=== PATIENT | male | born 1950 ===

== ENCOUNTER 2016-11-03 05:27 | Inpatient (IN) | payer OTHER ==
[2016-11-03] MEDS ORDERED: LIDOCAINE 1% 2 ML INJ ONE (06:28)
[2016-11-03] MEDS ORDERED: BUPIVACAINE 0.5% 30 ML SDV ONE (06:43)
[2016-11-03] MEDS ORDERED: SKIN ADHESIVE (DERMABOND) 1 EACH TP ONE (06:43)
[2016-11-03] MEDS ORDERED: LIDOCAINE 1% 5 ML SDV ID PRN (06:49)
[2016-11-03] MEDS ORDERED: LR 1,000 ML IV ONE (06:49)
[2016-11-03] MEDS ORDERED: ceFAZolin 2 GM/DEXTROSE 100 ML IV ONE (07:00)
[2016-11-03] MEDS ORDERED: MIDAZOLAM 2 MG/2 ML VIAL ONE (07:11)
[2016-11-03] MEDS ORDERED: PROPOFOL/EMULSION 500 MG/50 ML BOTTLE IV ONE (07:12)
[2016-11-03] MEDS ORDERED: ROCURONIUM 100 MG/10 ML VIAL ONE (07:13)
[2016-11-03] MEDS ORDERED: ONDANSETRON 4 MG/2 ML VIAL ONE (07:13)
[2016-11-03] MEDS ORDERED: LIDOCAINE 2% 5 ML SDV ONE (07:13)
[2016-11-03] MEDS ORDERED: DEXAMETHASONE 4 MG/ML VIAL ONE (07:13)
[2016-11-03] MEDS ORDERED: fentaNYL 250 MCG/5 ML INJ ONE ×2 (07:13→08:36)
[2016-11-03] MEDS ORDERED: KETOROLAC 30 MG/1 ML SDV ONE (07:13)
[2016-11-03] MEDS ORDERED: METOPROLOL TARTRATE 5 MG/5 ML INJ ONE (07:50)
[2016-11-03] MEDS ORDERED: ROCURONIUM 50 MG/5 ML VIAL ONE ×2 (08:57)
[2016-11-03] MEDS ORDERED: THROMBIN(HUM PLAS)/FIBRINOG/CA 5 ML VIAL TP ONE (09:36)
[2016-11-03] MEDS ORDERED: SUGAMMADEX SODIUM 200 MG/2 ML VIAL IVP ONE (10:06)
[2016-11-03] MEDS ORDERED: ONDANSETRON DISINTEGRATING 4 MG TAB PO PRN (10:31)
[2016-11-03] MEDS ORDERED: OXYCODONE/APAP 5/325 TAB PO PRN (10:31)
[2016-11-03] MEDS ORDERED: HYDROmorphONE/DILAUDID 1 MG/ML SYR IVP PRN (10:31)
[2016-11-03] MEDS ORDERED: ONDANSETRON 4 MG/2 ML VIAL IVP PRN (10:31)
[2016-11-03] MEDS ORDERED: ZOLPIDEM TARTRATE 5 MG TAB PO PRN (10:31)
[2016-11-03] MEDS ORDERED: fentaNYL 100 MCG/2 ML INJ ONE (10:44)
--- NOTE | 2016-11-03 11:14 | GOP ---
[f rep st] OPERATIVE REPORT DATE OF OPERATION: SURGEON: Adan Chong MD LICENSE INSPECTOR: Radha Sage CFA. ANESTHESIA: Dr. Shelton, general anesthesia. PREOPERATIVE DIAGNOSIS: Adenocarcinoma of the prostate. POSTOPERATIVE DIAGNOSIS: Adenocarcinoma of the prostate. PROCEDURE PERFORMED: Robotic-assisted radical retropubic prostatectomy and bilateral pelvic lymphad enectomy. FINDINGS: ESTIMATED BLOOD LOSS: Less than 100 mL per anesthesia. DESCRIPTION OF PROCEDURE: After undergoing appropriate general anesthesia, being prepped and draped in normal sterile fashion, and being positioned on the table for all padded sites and positioning, a Veress needle was placed in the supraumbilical site, then inflated the abdomen to 15 mmHg pressure , and then the camera port was placed in that site. Visualization revealed some mild adhesions to t he sigmoid colon and the lateral pelvic sidewall. The remaining ports were placed under direct visi on, and then at that point the robot was docked. I used the [place] bipolar scissors, monopolar, a nd a ProGrasp, and then after mobilization of the colon and adhesions, I was able to identify the va s deferens on the left side and carried that down to where it entered into the prostate. Identified the vas deferens on the right side from there and carried it lateral. Developed the space between the seminal vesicles, posterior prostate, and the anterior rectal wall under direct vision. Hemosta sis was noted. Transected the vasa and dissected out the seminal vesicles and hemostasis with Hem-o -loks. Did develop the plane between the posterior bladder, bladder neck, and the base of the prost ate seminal vesicles, then at that point dropped the bladder down in the normal fashion, going acros s the umbilical arteries and the urachus, and the endopelvic fascia was incised on both t he right and left sides. Puboprostatics taken down sharply. An M stitch was used with an 0 Vicryl to ligate the deep dorsal vein. His prostate was protruding up in the bladder and he had a signific ant amount of periprostatic veins, so I elected to use the tissue sealer device after opening the an terior bladder neck, identifying the posterior bladder neck, and bringing the base of the prostate u p so I could identify the seminal vesicle and vas deferens in the retro-cystic space. They were bro ught up and then I swept the vasculature off the large prostate and then managed them with this tiss ue sealer, and attempting to preserve and sweep away any vascular pedicle that might be on the left side. On the right side, because of the involvement of the base of the prostate, went well up above it so I could identify fat, and there was no obvious abnormality noted, and then went quite lateral so I could take all the periprostatic tissue, and then identified the apex of the prostate. Went t hrough the deep dorsal vein complex. It did seem to be oozing a bit, so I placed another 0 Vicryl s uture to close that, and then transected the urethra, delivered the specimen laterally. Then a Rocc o stitch of a V-Loc stitch was used in the standard fashion and then the anastomosis performed with a 4-0 Vicryl, bridged with a 22-Rosa catheter with a 20 cc balloon inflated, and it irrigated clear . Catheter went in quite easily. At that point, used Evicel at the bladder neck area, and then did the pelvic lymphadenectomy, both the right and left sides, and anatomic area was the mid aspect of the external iliac vein up to its bifurcation. Did actually visualize the ureter on both the right and left sides and made sure to sweep those separate from the olivia packet. There was no significan t olivia packet on the right side and no obvious nodes in that space, but did see a small amount of t issue on the left side, a bit of a larger packet. No gross lymphadenopathy was noted. At that poin t, pressure went down to 5. There were no bleeding sites. Placed a Ernst-Farr drain through the small 8 port system and prior to deflating the abdomen used a fascial closure device to close the 1 2 mm port for the bar assistant port, and then opened the midline abdominal incision lateral so I could deliver the specimen out of that, and then closed the fascia with a running 0 Vicryl. The wound and operative sites were hemostatic and the 4-0 Monocryl was used to close the skin edges. I did injec t the port sites circumferentially with Marcaine. He will be admitted for postoperative care. Disc ussed with his the above findings. Grossly, it appears that the nodes will be normal if there are any noted on the right side. A small amount of tissue was there, and then grossly there appeare d to be no tumor going beyond the prostate or seminal vesicles. We did visualize his pathology and TRUS reports prior to the surgery, so identified the appropriate sides that were involved at the bas e. DRAINS: Rosa catheter and a AYDIN drain. /[id number]/MODL
[2016-11-03] MEDS: D5W 1/2 NS W/ 20 KCl/L 1,000 ML IV SCH ×2 (13:27→21:12)
[2016-11-03] MEDS: ACETAMINOPHEN 325 MG TAB PO PRN (21:12)
[2016-11-03] MEDS: CHOLECALCIFEROL VIT D3 2,000 UNITS TAB/CAP PO SCH (21:12)
[2016-11-04 00:19] VITALS: RESP 16
[2016-11-04] MEDS: ACETAMINOPHEN 325 MG TAB PO PRN ×2 (04:58→12:52)
[2016-11-04] MEDS: D5W 1/2 NS W/ 20 KCl/L 1,000 ML IV SCH (05:02)
[2016-11-04 05:25] LABS: % IMMATURE GRANULYOCYTES 0.4 % (0.0-1.1); ABSOLUTE IMMATURE GRANULOCYTES 0.05 10^3/uL (0.00-0.10); ADD DIFF? NO; ADD MORPH? NO; ADD SCAN? NO; ATYPICAL LYMPHOCYTE FLAG 0 (0-99); FRAGMENT RBC FLAG 0 (0-99); HEMATOCRIT 39.8 % (40.0-51.0); HEMOGLOBIN 13.6 g/dL (13.7-17.5); LEFT SHIFT FLG 0 (0-99); LIPEMIA HEMOLYSIS FLAG 90 (0-99); MEAN CELL HEMOGLOBIN 30.8 pg (27.9-34.1); MEAN CELL HEMOGLOBIN CONCENTR. 34.2 g/dL (32.4-36.7); MEAN PLATELET VOLUME 9.9 fL (8.7-11.7); PLATELET CLUMPS FLAG 10 (0-99); PLATELET COUNT 162 10^3/uL (150-400); RED BLOOD CELL COUNT 4.42 10^6/uL (4.40-6.38); RED CELL DISTRIBUTION WIDTH 13.2 % (11.5-15.2)
[2016-11-04 05:31] LABS: CALCIUM 8.6 mg/dL (8.5-10.4); CARBON DIOXIDE 26 mEq/l (22-31); CHLORIDE 110 mEq/L (97-110); CREATININE 0.9 mg/dL (0.7-1.3); GLOMERULAR FILTRATION RATE > 60; GLUCOSE 129 mg/dL (70-100); SODIUM 142 mEq/L (134-144)
[2016-11-04 06:18] LABS: ANION GAP 6 mEq/L (8-16); POTASSIUM 4.2 mEq/L (3.5-5.2)
--- NOTE | 2016-11-04 08:05 | SOAPPROG ---
SOAP Progress Note Assessment/Plan: Assessment: Prostate cancer Acute POD 1, doing well Plan: assess for DC later 11/04/16 08:26 Subjective: doing well Objective: Vital Signs Temp Pulse Resp BP Pulse Ox 37.0 C 75 16 119/73 94 11/04/16 04:47 11/04/16 04:47 11/04/16 04:47 11/04/16 00:17 11/04/16 04:47 Laboratory Results 11/04/16 04:54 11/04/16 04:54 11/03/16 11/04/16 11/05/16 05:59 05:59 05:59 Intake Total 4400 Output Total 1820 Balance 2580 Physical Exam - Physical Exam General Appearance: alert, no apparent distress Neck: full range of motion Respiratory: No respiratory distress (inspirometer to >3000) Cardiac/Chest: regular rate, rhythm Abdomen: soft, No distended Back: CVA tenderness Extremities: No calf tenderness, No Tashia's sign Neuro/Psych: alert, oriented x 3 ICD10 Worksheet Patient Problems: Problems Problem Status Onset Prostate cancer Acute - ICD10 Problem Qualifiers (1) Prostate cancer
[2016-11-04] MEDS ORDERED: ASCORBIC ACID 500 MG TAB PO SCH (09:00)
[2016-11-04] MEDS ORDERED: LISINOPRIL 20 MG TAB PO SCH (09:00)
[2016-11-04] MEDS ORDERED: OMEGA-3 FATTY ACIDS 1,000 MG CAP PO SCH (09:00)
[2016-11-04] MEDS ORDERED: PRESERVISION AREDS2 FORMULA EYE VIT 1 EACH PO SCH (09:00)
[2016-11-04] MEDS ORDERED: ATORVASTATIN CALCIUM 20 MG TAB PO SCH (09:00)
[2016-11-04] MEDS ORDERED: Herbals/Supplements -Info Only PO SCH (09:00)
[2016-11-04] MEDS: CHOLECALCIFEROL VIT D3 2,000 UNITS TAB/CAP PO SCH (09:10)
[2016-11-04 12:43] VITALS: BP 127/84; PULSE 82; TEMP 98.8; O2SAT 96
--- NOTE | 2016-11-04 14:02 | GDS ---
[f rep st] DISCHARGE SUMMARY PREOPERATIVE/POSTOPERATIVE DIAGNOSIS: Prostate cancer. HOSPITAL COURSE: This is a pleasant 66-year-old male, who was evaluated in our office and found to have prostate cancer. After A full discussion of all his options, he elected to have a radical robotic retropubic prostatectomy and bilateral pelvic lymphadenopathy done by Dr. Chong, with no complications encountered during his procedure. He is being discharged home in good condition. He is to follow up with our office in 10 days for urinary catheter removal. /[id number]/MODL MTDD
== END 2016-11-04 15:26 | disposition home or self-care (01) | DRG 708 ==
LOC: F1N 05:27
PROVIDERS: ADMIT Specialist; ATTEND Specialist
DX: C61 Malignant neoplasm of prostate (principal); I10 Essential (primary) hypertension; E78.00 Pure hypercholesterolemia, unspecified
CPT/HCPCS: J0690; J1100; J1885; J2250; J2405; J2704; J3010